=== PATIENT | male | born 1955 | race Hispanic/Latino ===

== ENCOUNTER → 2021-09-19 | Outpatient (CLI) | payer MEDICARE ==
[2021-09-20 05:49] LABS: PROSTATE SPECIFIC AG TOTAL 17.2 ng/mL (0.0-4.0); PSA FREE 2.19 ng/mL
== END ==
LOC: LAB 14:11
PROVIDERS: ATTEND Student in an Organized Health Care Education/Training Program
DX: N42.9 Disorder of prostate, unspecified (principal); E78.5 Hyperlipidemia, unspecified; I10 Essential (primary) hypertension; Z79.899 Other long term (current) drug therapy
CPT/HCPCS: 84153